=== PATIENT | male | born 1950 ===

== ENCOUNTER → 2017-04-08 07:41 | Day surgery (SDC) | payer BC ==
[~2017-04-08 07:41] MED LIST: Buffered Lidocaine 0.9% SYRIN* 5 ML/SYR SYRINGE INTRADERM ONE; Bupivacaine 0.5% SDV PF* 30 ML VIAL ONE; Ketorolac INJ* 30 MG/ML 1 ML VIAL ONE; Lidocaine 1% MPF wEPI 200,000* 30 ML SDV ONE; Midazolam* 1 MG/ML 2 ML VIAL (2 MG) ONE; Midazolam* 1 MG/ML 5 ML VIAL (5 MG) ONE; ceFAZolin 2 GM PREMIX (*) 50 ML IVPB ONE; fentaNYL* 50 MCG/ML 2 ML VIAL (100 MCG VIAL) ONE
[2017-04-08 10:12] VITALS: BP 109/64
--- NOTE | 2017-04-08 14:36 | OP ---
CC: Dr. Osborne; Dr. Mega Rojas * DATE OF OPERATION: 04/08/17 - [facility] DATE OF : 50 SURGEON: Toño Osborne MD PERFORMANCE ENGINEER: None. ANESTHESIOLOGIST: Dr. Liam Robertson. ANESTHESIA: LMAC anesthesia. PRE-OP DIAGNOSIS: Right inguinal hernia. POST-OP DIAGNOSIS: Right inguinal hernia. OPERATIVE PROCEDURE: Open right inguinal hernia repair with mesh. DESCRIPTION OF PROCEDURE: Patient was supine on the operating table. After adequate intravenous sedation, compression stockings, Ruth Hugger warmer, and intravenous antibiotics, the right groin was clipped and prepped with antiseptic , draped in a sterile fashion. Local infiltrative anesthesia was administered and approximately 5-cm incision was created and dissection carried down to the external oblique, which was opened in the direction of its fibers. The cord structures were encircled and tented upward. The direct space was a little lax but no obvious hernia. A cone mesh plug was placed in the indirect space after reduction of the contents. This was sutured with 2-0 Vicryl. Second piece of mesh was placed to the inguinal floor, sutured at the tubercle, tails were split , brought down the cord structures, tacked down laterally. The external oblique was closed over top with 2-0 Polysorb, Peyman's with 3-0 Polysorb, and skin with 4-0 Surgipro followed by a sterile dressing. He tolerated the procedure well, was awakened and brought to the recovery in good condition. There were no complications. No drains. No pathologic specimens. Sponge and instrument counts were correct. Estimated blood loss is less than 20 mL. [id number]/[facility] #: [id number] MTDD
== END | disposition home or self-care (01) ==
LOC: OR 07:41
PROVIDERS: ATTEND Surgery
DX: K40.20 Bilateral inguinal hernia, without obstruction or gangrene, not specified as recurrent (principal)
CPT/HCPCS: C1781; J0690; J1885; J2001; J2250; J3010